=== PATIENT | male | born 1960 | race Caucasian/White ===

== ENCOUNTER → 2024-11-24 | Outpatient (CLI) | payer OTHER, SELFPAY ==
[2024-11-24 15:52] LABS: Basophils % (Auto) 1 % (0-2.5); Eosinophils # (Auto) 0.1 Thou/mm3 (0.0-0.5); Eosinophils % (Auto) 1 % (0-10); Hematocrit 42.8 % (41.0-53.0); Hemoglobin 13.5 g/dL (13.5-16.0); Immature Granulocytes % (Auto) 1 % (0-0); Lymphocytes # (Auto) 1.4 Thou/mm3 (1.0-4.8); Lymphocytes % (Auto) 20 % (10-50); Mean Corpuscular HGB Conc 31.5 g/dl (31.0-37.0); Mean Corpuscular Hemoglobin 28.3 pg (25.0-35.0); Mean Corpuscular Volume 90 fL (80-100); Monocytes # (Auto) 0.6 Thou/mm3 (0.0-0.8); Monocytes % (Auto) 9 % (0-12); Neutrophils % (Auto) 69 % (37-80); Nucleated Red Blood Cell % 0 /100 WBC (0); Platelet Count 281 Thou/mm3 (140-440); RDW Standard Deviation 44.2 fL (35.1-43.9); Red Blood Count 4.77 Miln/mm3 (4.50-5.90); White Blood Count 7.3 Thou/mm3 (3.8-10.6)
[2024-11-24 16:18] LABS: C-Reactive Protein < 0.4 mg/dL (0.0-0.9)
[2024-11-24 16:34] LABS: Sed Rate (ESR) 13 mm/hr (0-20)
== END | disposition home or self-care (01) ==
LOC: COPL 14:14
PROVIDERS: PCP Specialist; Referring Provider Family Medicine; Visit Provider Family Medicine
DX: T81.41XS Infection following a procedure, superficial incisional surgical site, sequela (principal)
CPT/HCPCS: 36415; 85025; 85652; 86140

== ENCOUNTER → 2024-11-30 | Outpatient (CLI) | payer OTHER, SELFPAY ==
[2024-11-30 16:44] LABS: Blood Urea Nitrogen 29 mg/dL (9-23); Creatinine (Component) 0.8 mg/dL (0.6-1.3); eGFR > 60 See Note
== END | disposition home or self-care (01) ==
PROVIDERS: PCP Specialist; Referring Provider Family Medicine; Visit Provider Family Medicine
DX: Z01.818 Encounter for other preprocedural examination (principal)
CPT/HCPCS: 36415; 82565; 84520

== ENCOUNTER → 2024-12-19 | Outpatient (CLI) | payer OTHER, SELFPAY ==
--- NOTE | 2024-12-19 14:32 | XR_ITS ---
Examination: Thoracic spine 3 views Technique: AP lateral coned lateral upper dorsal spine 3 views Exam date and time: December 19, 2024 1511 hrs. Comparison February 19, 2023 Indications: Patient fell one week ago with injury to the upper back, upper back pain. Findings: Extensive transpedicular thoracolumbar stabilization No acute thoracic fracture No lorne cortical bone destruction Mild to moderate diffuse thoracic degenerative disc disease Impression: No acute thoracic fracture visualized
--- NOTE | 2024-12-19 14:33 | XR_ITS ---
Examination: Lumbar spine, 5 views Technique: Lumbar spine AP, lateral, coned lateral lower lumbar spine, bilateral obliques 5 views Exam date and time: December 19, 2024 1504 hrs. Indications: Patient fell last week with injury to lower back, lower back pain. Findings: Extensive transpedicular thoracolumbar sacral stabilization with disc spacers at the lower 4 lumbar levels No old wedging L3 No acute lumbar fracture Impression: No acute lumbar fracture
== END | disposition home or self-care (01) ==
LOC: CDIM 14:06
PROVIDERS: PCP Family Medicine; Referring Provider Family Medicine; Visit Provider Family Medicine
DX: S29.9XXA Unspecified injury of thorax, initial encounter (principal); S39.92XA Unspecified injury of lower back, initial encounter; W19.XXXA Unspecified fall, initial encounter
CPT/HCPCS: 72072; 72110

== ENCOUNTER → 2025-02-14 | Outpatient (CLI) | payer OTHER, SELFPAY ==
[2025-02-14 11:25] LABS: Basophils % (Auto) 1 % (0-2.5); Eosinophils # (Auto) 0.1 Thou/mm3 (0.0-0.5); Eosinophils % (Auto) 2 % (0-10); Hemoglobin 13.3 g/dL (13.5-16.0); Immature Granulocytes % (Auto) 1 % (0-0); Immature Granulocytes Auto 0.09 Thou/mm3 (0.00-0.00); Lymphocytes # (Auto) 1.2 Thou/mm3 (1.0-4.8); Lymphocytes % (Auto) 20 % (10-50); Mean Corpuscular HGB Conc 33.3 g/dl (31.0-37.0); Mean Corpuscular Hemoglobin 29.2 pg (25.0-35.0); Mean Corpuscular Volume 88 fL (80-100); Monocytes # (Auto) 0.6 Thou/mm3 (0.0-0.8); Monocytes % (Auto) 10 % (0-12); Neutrophils # (Auto) 4.1 Thou/mm3 (1.8-7.7); Neutrophils % (Auto) 66 % (37-80); Nucleated Red Blood Cell % 0 /100 WBC (0); Platelet Count 219 Thou/mm3 (140-440); RDW Standard Deviation 43.6 fL (35.1-43.9); Red Blood Count 4.56 Miln/mm3 (4.50-5.90); White Blood Count 6.3 Thou/mm3 (3.8-10.6)
[2025-02-14 11:42] LABS: Partial Thromboplastin Time 28.8 Seconds (22.0-36.0); Prothrombin Time 10.7 Seconds (9.0-12.2)
== END | disposition home or self-care (01) ==
LOC: COPL 10:47
PROVIDERS: PCP Specialist; Referring Provider Family Medicine; Visit Provider Family Medicine
DX: Z01.818 Encounter for other preprocedural examination (principal)
CPT/HCPCS: 36415; 85025; 85610; 85730

== ENCOUNTER 2025-04-11 06:36 | Day surgery (SDC) | payer BC, SELFPAY ==
--- NOTE | 2025-04-10 07:00 | EKG_ITS ---
[facility] (Formerly [facility]) Test Date: 2025-04-10 Pat Name: DARLIN ROSSI Department: Room: - Gender: Male Engineering Clerk: RT LARIOS : 1960 Requested By: Jono Marroquin Order Number: [id number] Reading MD: Jono Marroquin Measurements Intervals [place] Rate: 61 P: 52 ME: 160 QRS: 16 QRSD: 96 T: -11 QT: 391 QTc: 396 Interpretive Statements SINUS RHYTHM NONSPECIFIC T-WAVE ABNORMALITY Compared to ECG 08/16/2019 16:32:52 No significant changes /store/S0/[id number].pdf
[2025-04-10 15:26] LABS: Basophils % (Auto) 1 % (0-2.5); Eosinophils # (Auto) 0.1 Thou/mm3 (0.0-0.5); Eosinophils % (Auto) 2 % (0-10); Hematocrit 40.1 % (41.0-53.0); Hemoglobin 13.2 g/dL (13.5-16.0); Immature Granulocytes % (Auto) 1 % (0-0); Immature Granulocytes Auto 0.09 Thou/mm3 (0.00-0.00); Lymphocytes # (Auto) 1.3 Thou/mm3 (1.0-4.8); Lymphocytes % (Auto) 21 % (10-50); Mean Corpuscular HGB Conc 32.9 g/dl (31.0-37.0); Mean Corpuscular Volume 88 fL (80-100); Monocytes # (Auto) 0.8 Thou/mm3 (0.0-0.8); Monocytes % (Auto) 12 % (0-12); Neutrophils % (Auto) 62 % (37-80); Nucleated Red Blood Cell % 0 /100 WBC (0); Platelet Count 237 Thou/mm3 (140-440); RDW Standard Deviation 45.4 fL (35.1-43.9); Red Blood Count 4.55 Miln/mm3 (4.50-5.90); White Blood Count 6.3 Thou/mm3 (3.8-10.6)
[2025-04-10 15:34] LABS: INR 0.9 (0.9-1.3); Partial Thromboplastin Time 27.4 Seconds (22.0-36.0); Prothrombin Time 10.3 Seconds (9.0-12.2)
[2025-04-10 15:39] LABS: Anion Gap 7 (7-16); BUN/Creatinine Ratio 24 Ratio (12-20); Blood Urea Nitrogen 22 mg/dL (9-23); Calcium 8.8 mg/dL (8.3-10.6); Carbon Dioxide 26.2 mMol/L (20.0-31.0); Chloride 112 mMol/L (98-107); Creatinine (Component) 0.9 mg/dL (0.6-1.3); Glucose 84 mg/dL (74-106); Osmolality,Calculated 291 (275-295); Potassium 4.5 mMol/L (3.4-5.1); Sodium 145 mMol/L (136-145); eGFR > 60 See Note
[2025-04-10 15:46] LABS: COVID-19 Antigen (In-House) Negative (Negative)
[2025-04-11] VITALS (14 sets, daily range): BP systolic 132–179; BP diastolic 72–102; PULSE 54–64; RESP 15–22; TEMP 36.2–37; O2SAT 97–100; BMI 45.8
[2025-04-11] MEDS: DIAZEPAM 5 MG TABLET PO (07:31)
--- NOTE | 2025-04-11 08:29 | PD.CARDCATH ---
Cardiac Cath Procedure Procedure Narrative Procedure date 04/11/2025 Title of the procedure 1.left heart catheterization 2.left coronary angiogram 3.right coronary angiogram 4.left ventriculogram 5.conscious sedation 6.radiographic interpretation supervision 7.ultrasound guidance for right radial access Indication for the procedure This is a 64-year-old gentleman with past medical history of hypertension obesity hyperlipidemia complains of atypical chest pain Patient did undergo prior cardiac stress test which was equivocal Cardiac catheter cholangiogram recommended Procedure This is done in the cardiac lab under current electrocardiographic monitoring intermittent blood pressure monitoring Right radial access obtained using modified Seldinger technique and 6 [place] sheath was placed TIG 4 catheter was used for selective into the left coronary artery AL-1 catheter was used for selective in the right coronary artery TIG 4 catheter used for left ventriculogram Findings Hemodynamics Overall left ventricular systolic function appears normal Approximate ejection fraction 60% End-diastolic pressure was 18 mmHg There is no gradient across the aortic valve Coronary anatomy 1.left main coronary artery appears normal 2.left anterior descending artery has luminal regularities close to the apex 3.circumflex appears to have 1st and 2nd obtuse marginal no significant lesion 4.right coronary is a dominant vessel 20% lesion noted in the midsegment 5.PDA does not seem to have any significant lesion Conclusion No significant coronary lesion continue medical management
[2025-04-11] MEDS: SODIUM CHLORIDE 0.45 % 500 ML 350 ML IV ×2 (08:30→09:56)
--- NOTE | 2025-04-11 08:51 | PC.NURSE ---
0830 patient is awake, alert, breathing unlabored, s/p LHC by , TR band present to right wrist, no bleeding or hematoma noted, report received from Ralph TIRADO, patient to recover for 3 hours and 1 hr post TR band removal.
--- NOTE | 2025-04-11 10:47 | PC.NURSE ---
1035 TR band removed, no bleeding or hematoma noted, site covered with tegaderm and coban.
--- NOTE | 2025-04-11 11:56 | PC.NURSE ---
1145 patient is awake, alert, breathing unlabored, dressing to right wrist dry with no bleeding or hematoma. patient able to tolerate food tray with no nausea or vomiting, able to void x4 via urinal, meets discharge criteria, discharge instructions given to patient and Caroline patient discharged home in wheelchair with all belongings.
== END 2025-04-11 11:45 | disposition home or self-care (01) ==
PROVIDERS: PCP Specialist; Referring Provider Internal Medicine; Visit Provider Internal Medicine
PROC: (CPT 93458; principal; 2025-04-11 07:30)
DX: I25.119 Atherosclerotic heart disease of native coronary artery with unspecified angina pectoris (principal); E66.9 Obesity, unspecified; E78.5 Hyperlipidemia, unspecified; I10 Essential (primary) hypertension; Z68.42 Body mass index [BMI] 45.0-49.9, adult
CPT/HCPCS: 93458; 36415; 80048; 85025; 85610; 85730; 87811; 93005; 99152; A4216; A4649; C1769; C1887; J0171; J0461; J0583; J1643; J2250; J2310; J2371; J3010; J3490; J7030; Q9967; A9270; J2305

== ENCOUNTER → 2025-06-12 | Outpatient (CLI) | payer OTHER, SELFPAY ==
--- NOTE | 2025-06-12 16:48 | XR_ITS ---
Examination: PA lateral chest 2 views TECHNIQUE: Upright PA and lateral chest 2 views Time: June 12, 2025 1654 hours, comparison April 20, 2024 INDICATIONS: Preop FINDINGS: Stable linear scarring in the left upper lung zone. No significant cardiac enlargement No unremarkable pneumonia or pulmonary edema Right shoulder arthroplasty. Extensive transpedicular thoracic lumbar stabilization IMPRESSION: No active disease
[2025-06-12 17:12] LABS: Collection Type, Urine Clean Catch; Squamous Epithelial Cell,Urine 0 /hpf (0-5)
[2025-06-12 17:39] LABS: Basophils # (Auto) 0.0 Thou/mm3 (0.0-0.2); Basophils % (Auto) 1 % (0-2.5); Eosinophils # (Auto) 0.1 Thou/mm3 (0.0-0.5); Eosinophils % (Auto) 2 % (0-10); Hematocrit 41.9 % (41.0-53.0); Hemoglobin 13.7 g/dL (13.5-16.0); Immature Granulocytes Auto 0.11 Thou/mm3 (0.00-0.00); Lymphocytes # (Auto) 1.4 Thou/mm3 (1.0-4.8); Lymphocytes % (Auto) 21 % (10-50); Mean Corpuscular HGB Conc 32.7 g/dl (31.0-37.0); Mean Corpuscular Hemoglobin 29.0 pg (25.0-35.0); Mean Corpuscular Volume 89 fL (80-100); Monocytes # (Auto) 0.8 Thou/mm3 (0.0-0.8); Monocytes % (Auto) 12 % (0-12); Neutrophils # (Auto) 4.3 Thou/mm3 (1.8-7.7); Neutrophils % (Auto) 63 % (37-80); Nucleated Red Blood Cell # 0.00 Thou/mm3 (0.00-0.00); Nucleated Red Blood Cell % 0 /100 WBC (0); Platelet Count 242 Thou/mm3 (140-440); RDW Standard Deviation 43.7 fL (35.1-43.9); Red Blood Count 4.73 Miln/mm3 (4.50-5.90); White Blood Count 6.8 Thou/mm3 (3.8-10.6)
[2025-06-12 17:44] LABS: INR 1.0 (0.9-1.3); Partial Thromboplastin Time 28.0 Seconds (22.0-36.0); Prothrombin Time 10.5 Seconds (9.0-12.2)
[2025-06-12 17:51] LABS: Bilirubin,Urine Negative (Negative); Blood,Urine Trace (Negative); Clarity,Urine Clear (Clear/Hazy); Color,Urine Lt-Yellow (Lt Yel-Yel); Culture Indicated,Urine Not Indicated; Glucose, Urine Negative (Negative); Ketones,Urine Negative (Negative); Leukocyte Esterase,Urine Negative (Negative); Nitrite,Urine Negative (Negative); PH,Urine 6.0 (5.0-7.0); Protein,Urine Trace (Neg - Trace); RBC,Urine 2 /hpf (0-3); Specific Gravity,Urine 1.032 (1.001-1.035); Urobilinogen,Urine Negative mg/dL (0.0-1.0); WBC,Urine < 1 /hpf (0-5)
[2025-06-12 17:53] LABS: Alanine Aminotransferase 24 U/L (10-49); Albumin, Serum 4.3 gm/dL (3.4-4.8); Albumin/Globulin Ratio 1.8 (1.2-2.2); Alkaline Phosphatase 117 U/L (46-116); Anion Gap 11 (7-16); Aspartate Amino Transferase 20 U/L (0-34); BUN/Creatinine Ratio 24 Ratio (12-20); Bilirubin,Total 0.3 mg/dL (0.3-1.2); Blood Urea Nitrogen 22 mg/dL (9-23); Calcium 9.5 mg/dL (8.3-10.6); Calcium (Corrected) 9.5 mg/dL (8.5-10.1); Carbon Dioxide 26.2 mMol/L (20.0-31.0); Chloride 108 mMol/L (98-107); Creatinine (Component) 0.9 mg/dL (0.6-1.3); Globulin 2.4 gm/dL (2.3-3.5); Glucose 101 mg/dL (74-106); Osmolality,Calculated 292 (275-295); Potassium 3.6 mMol/L (3.4-5.1); Sodium 145 mMol/L (136-145); Total Protein 6.7 gm/dL (5.7-8.2); eGFR > 60 See Note
[2025-06-12 19:19] LABS: Vitamin D 25 Hydroxy Total 31.8 ng/mL (7.3-40.2)
== END | disposition home or self-care (01) ==
LOC: CDIM 17:02 → COPL 17:05
PROVIDERS: PCP Family Medicine; Referring Provider Family Medicine; Visit Provider Radiology Diagnostic Radiology
DX: Z01.818 Encounter for other preprocedural examination (principal); M51.06 Intervertebral disc disorders with myelopathy, lumbar region
CPT/HCPCS: 36415; 71046; 80053; 81001; 82306; 85025; 85610; 85730

== ENCOUNTER → 2025-09-29 | Outpatient (CLI) | payer OTHER, SELFPAY ==
[2025-09-29 13:27] LABS: Basophils # (Auto) 0.1 Thou/mm3 (0.0-0.2); Basophils % (Auto) 1 % (0-2.5); Eosinophils # (Auto) 0.2 Thou/mm3 (0.0-0.5); Eosinophils % (Auto) 3 % (0-10); Hematocrit 40.0 % (41.0-53.0); Hemoglobin 12.8 g/dL (13.5-16.0); Immature Granulocytes Auto 0.08 Thou/mm3 (0.00-0.00); Lymphocytes # (Auto) 1.6 Thou/mm3 (1.0-4.8); Lymphocytes % (Auto) 23 % (10-50); Mean Corpuscular HGB Conc 32.0 g/dl (31.0-37.0); Mean Corpuscular Hemoglobin 27.8 pg (25.0-35.0); Mean Corpuscular Volume 87 fL (80-100); Monocytes # (Auto) 0.6 Thou/mm3 (0.0-0.8); Monocytes % (Auto) 9 % (0-12); Neutrophils # (Auto) 4.3 Thou/mm3 (1.8-7.7); Neutrophils % (Auto) 63 % (37-80); Nucleated Red Blood Cell # 0.00 Thou/mm3 (0.00-0.00); Nucleated Red Blood Cell % 0 /100 WBC (0); Platelet Count 256 Thou/mm3 (140-440); RDW Standard Deviation 44.6 fL (35.1-43.9); Red Blood Count 4.60 Miln/mm3 (4.50-5.90); White Blood Count 6.8 Thou/mm3 (3.8-10.6)
[2025-09-29 13:49] LABS: Sed Rate (ESR) 39 mm/hr (0-20)
[2025-09-29 14:08] LABS: C-Reactive Protein < 0.5 mg/dL (0.0-0.9)
== END | disposition home or self-care (01) ==
LOC: COPL 11:58
PROVIDERS: PCP Specialist; Referring Provider Student in an Organized Health Care Education/Training Program; Visit Provider Student in an Organized Health Care Education/Training Program
DX: Z47.89 Encounter for other orthopedic aftercare (principal)
CPT/HCPCS: 36415; 85025; 85652; 86140

== ENCOUNTER → 2025-10-02 | Outpatient (CLI) | payer OTHER, SELFPAY ==
--- NOTE | 2025-10-02 07:11 | XR_ITS ---
EXAMINATION: Ultrasound soft tissue upper back TECHNIQUE: Grayscale sonographic image of soft tissue upper back Date and time: September, 0717 hours INDICATIONS: Burning and swelling at the surgery incision site in the lower back post back surgery May 2025 FINDINGS: Skin edema No abscess or soft tissue mass noted IMPRESSION: Edema in the skin, no abscess or soft tissue mass noted Consider MRI lumbar spine without contrast follow-up, as clinically warranted
== END | disposition home or self-care (01) ==
LOC: SDIM 06:49 → CDIM 14:31
PROVIDERS: PCP Specialist; Referring Provider Family Medicine; Visit Provider Family Medicine
DX: T81.41XA Infection following a procedure, superficial incisional surgical site, initial encounter (principal); R60.0 Localized edema
CPT/HCPCS: 76604

== ENCOUNTER 2025-10-10 13:10 | Outpatient (AMB) | payer OTHER, SELFPAY ==
--- NOTE | 2025-10-10 13:44 | ORTHONT_ITS ---
Vital signs 10/10/25 13:46 Height 1.83 m Height Method Stated Weight 106.594 kg Weight Measurement Method Standing Scale BMI 31.8 BP 180/99 H Blood Pressure Source Automatic Cuff Blood Pressure Location Left Upper Arm Position Sitting Respiration 18 Pulse 71 Pulse Source Monitor Temp 97.8 F Temp Source Temporal Artery Scan Pulse Oximetry (%) 96 Oxygen Delivery Method Room Air Med/Allergies Allergies & Medications Allergies latex Allergy (Intermediate, Verified 10/10/25 13:47) RASH Medication Reconciliation aspirin 81 mg tablet,delayed release 81 mg PO QDAY 08/13/23 [History Confirmed 10/10/25] oxycodone-acetaminophen 10 mg-325 mg tablet (Percocet) 1 tab PO Q6H 08/13/23 [History Confirmed 10/10/25] lisinopril 40 mg tablet 40 mg PO BID #90 tabs 08/16/23 [Rx Confirmed 10/10/25] cyclobenzaprine 10 mg tablet 10 mg PO BID PRN muscle spasm 04/11/25 [History Confirmed 10/10/25] meloxicam 15 mg tablet 15 mg PO PRN PRN pain 04/11/25 [History Confirmed 10/10/25] Exam Exam Patient is in no acute distress and is cooperative with the examination today. Breathing is nonlabored. Patient has a normal mood and affect. Bilateral extremities were evaluated and demonstrates sensation intact to light touch. Palpable pedal pulses are present. No significant edema is present. Bilateral hips were examined. The patient has no pain with log roll of the hips. Internal rotation to 30 degrees and external rotation to 30 degrees is painless. Negative FADIR. Right knee was examined today. The right knee is in reasonable alignment. Range of motion from 0-120 degrees. Knee is stable to varus and valgus as well as AP translation with <5mm. Patient has a negative Mc[place]. There is no pain with patellofemoral compression and no crepitus noted. The knee is nontender to palpation. Left knee was examined today. The left knee is in [varus] alignment. Range of motion from [0-115] degrees. Knee is stable to varus and valgus as well as AP translation with <5mm. Patient has a [negative] Mc[place]rays. There is [no] pain with patellofemoral compression and [no] crepitus noted. The knee is [tender] to palpation [medially]. X-rays demonstrate significant joint space narrowing and complete obliteration of the medial joint space. Osteophytes are present Assessment and Plan Problem List (1) Unilateral primary osteoarthritis, left knee: Status: Acute Plan: Patient is a pleasant 65-year-old male with left knee osteoarthritis. We discussed nonoperative and operative options. He has lost quite a bit of weight since we last saw him. Patient recently had a long thoracic fusion and is still recovering from this. He has been 5 months from surgery. I would wait for a little longer before proceeding with surgery I think Recommend knee cortisone injection as patient would like to proceed with conservative treatment at this time. The risks and benefits of the procedure were reviewed with the patient and patient gave verbal consent to continue with the procedure. Procedure: performed by Dr. Mayberry Using sterile technique the left knee was thoroughly prepped with alcohol, and approximately 1 cc of Depo-Medrol 80mg/mL and 4 cc of 0.2% ropivacaine was injected without resistance into the medial tibial femoral joint space. The patient tolerated the procedure. Office Procedures GNS Level of Care Nursing/Assessment Patient Status: Established Patient Nursing Assessment/Reassesment: Medication Reconciliation, Update PMH in EMR and Vital Signs Coordination of Care: Complex Care and Chronic Disease 1-5, Education Complex Pt/Fam, Consent,records obtained, informed consent, Results/Orders obtained and Staff clarify orders Established Patient Charge Established Patient Point Assignment: 95 Established Patient Point Charge: EP Level 3 (80-115) Surgical Proc/IM SQ injection Minor Surgical Procedure: Yes (KNEE INJECTION) Medication Given Medication Given Medication Given: Yes Documented Dose Given: 1 Route: Infiitration Medication Given Medication Given Medication Given: Yes Documented Dose Given: 4 Route: Infiitration Office Meds methylprednisolone acetate 80 mg/mL suspension for injection Performing Provider: Javier Mayberry MD Performing Location: [facility] Administered by: Javier Mayberry MD on 10/10/25 14:47 Dose Route Admin Location Dispensed Lot Number Expiration Date Pack age [facility] [employer] Supervisor 80 mg intra-articular 1 mL [id number] 05/24/27 [address]-8 7 [id number] [employer] ropivacaine (PF) 2 mg/mL (0.2 %) injection solution Performing Provider: Javier Mayberry MD Performing Location: [facility] Administered by: Javier Mayberry MD on 10/10/25 14:48 Dose Route Admin Location Dispensed Lot Number Expiration Date Pack age [facility] Treating [employer] Pumping Supervisor 20 mL Infiltration 20 mL [id number] 11/24/27 78178-318-14 [id number] [facility] Intake Visit Data Collection New Patient or Established: Established Patient (seen at [facility] within 3 years) Reason for Visit:: LEFT KNEE PAIN Seen by Clinical Staff ONLY (RN/MA): No PCP or OBGYN visit in last 3 months: Yes Hx Now: No Do You Feel Safe at Home: Yes Authorities Contacted: N/A Questionairres Past Medical History Past Medical History Have you ever been diagnosed with any of the following: Neurological Problems Head Trauma: Yes Cardiology Problems Angina: Yes Coronary Artery Disease: Yes Peripheral Vascular Disease: Yes Hypercholesterolemia: Yes Congestive Heart Failure: No Hypertension: Yes Respiratory Problems Chronic Obstructive Pulmonary Disease (COPD): No Asthma: No Smoking: No Smoking Cessation Counseling: No Smoking Exposure: No Tobacco Use: No Clubbing: No Stomache/Intestinal Problems Gastroesophageal Reflux Disease: Yes Genital/Urinary Problems Renal Disease: No Musculoskeletal Problems Fractures: Yes Endocrine Problems Diabetes Mellitus Type 1: No Diabetes Mellitus Type 2: No Blood Problems Anemia: Yes Sickle Cell Disease: No Other Problems Hospitalization: Yes Down Syndrome: No Developmental Delay: No Falls: No Blood Transfusions: Yes Blood Transfusion Reaction: No Anesthesia Reactions: No Chicken Pox: Yes Cancer: No Subjective Visit Visit for: follow up visit and knee (LEFT) Immunization / Flu Flu Vaccine in the Last 12 Months: No Flu Vaccine Exclusion Criteria: No Exclusion Criteria History of Present Illness Chief complaint: LEFT KNEE PAIN Patient is a pleasant 65-year-old male who presents today for evaluation of his left knee. He had prior Arthroscopic surgeries that were all meniscectomies. Here for them. He now has had continued knee pain for quite a while. He was told his knees are [id number]. He has tried ibuprofen and diclofenac. He reports he was doing well until about last week where he woke up with increased pain and swelling. The swelling is gone down substantially. He is using a walker. Pain Pain level (0-10): 4 Pain duration: ON AND OFF Pain location: inside (medial) and anterior Associated signs & symptoms: none Ambulatory data Ambulatory device: none Treatments Improvement with previous injections: No Improvement with PT: No Improvement with NSAIDS: no Review of Systems Review of Systems: All systems negative unless otherwise noted in HPI.
[2025-10-10 13:46] VITALS: BP 180/99; PULSE 71; RESP 18; TEMP 36.6; O2SAT 96; BMI 31.8
== END 2025-10-10 14:08 | disposition home or self-care (01) ==
LOC: HODSRG 13:10
PROVIDERS: PCP Specialist; Referring Provider Specialist; Supervising Provider Orthopaedic Surgery Adult Reconstructive Orthopaedic Surgery; Visit Provider Orthopaedic Surgery Adult Reconstructive Orthopaedic Surgery
DX: M17.12 Unilateral primary osteoarthritis, left knee (principal)
CPT/HCPCS: 20610; 99213; J1010; J2795; G0463